=== PATIENT | female | born 1945 | race Caucasian/White ===

== ENCOUNTER → 2018-05-21 | Outpatient (CLI) | payer MEDICARE, OTHER ==
[~2018-05-21] MED LIST: ASPI-555 PO; BETA1TAB20 PO; CHOL5POW MC; LEVO175T4 PO; LEVO200T5 PO; LOSA100T20 PO; METO-408 PO; OMEP20CA10 PO; VITAMIN B12 INJ INJ; [UNRECOGNIZED DRUG - CODE] MC
== END | disposition home or self-care (01) ==
LOC: RAH 10:50
PROVIDERS: ATTEND Internal Medicine Endocrinology, Diabetes & Metabolism
DX: E04.2 Nontoxic multinodular goiter (principal); K21.9 Gastro-esophageal reflux disease without esophagitis
CPT/HCPCS: 76536

== ENCOUNTER 2019-04-08 11:22 | Inpatient (IN) | payer OTHER ==
[~2019-04-08] VITALS: Ht 160 cm; Wt 86.5 kg
[~2019-04-08 11:22] MED LIST changes: -LOSA100T20 PO; +LOSA100T58 PO; +OMEP-50 PO; -OMEP20CA10 PO
[2019-04-08 12:00] LABS: BASOPHILS % (AUTO) 0.2 % (0.0-5.0); HEMATOCRIT 48.3 % (36-48); LYMPHOCYTES % (AUTO) 4.7 % (21.0-51.0); MEAN CORPUSCULAR HEMOGLOBIN 29.6 pg (27.0-33.0); MEAN CORPUSCULAR HGB CONC 33.7 g/dL (32.0-36.0); MEAN CORPUSCULAR VOLUME 87.6 fL (79-99); MONOCYTES % (AUTO) 4.4 % (3.0-13.0); NEUTROPHILS % (AUTO) 90.7 % (40.0-77.0); PLATELET COUNT (AUTO) 261 K/uL (130-400); RED BLOOD CELL COUNT(AUTO) 5.51 MIL/uL (4.00-5.50); RED CELL DISTRIBUTION WIDTH 13.4 % (11.0-15.5); WHITE BLOOD COUNT (AUTO) 16.6 K/uL (4.8-10.8)
[2019-04-08] MEDS ORDERED: ONDANSETRON HCL 4 MG/2 ML VIAL ONE ×2 (12:00→20:21)
[2019-04-08] MEDS ORDERED: SODIUM CHLORIDE 0.9% 1000ML 1,000 ML IV ONE ×2 (12:01→16:50)
[2019-04-08] MEDS ORDERED: KETOROLAC TROMETHAMINE 30MG/ML ONE (12:01)
[2019-04-08 12:09] LABS: CREATININE 0.9 mg/dL (0.5-1.5); POTASSIUM 3.9 mmol/L (3.5-5.1)
[2019-04-08 12:23] LABS: ALBUMIN 4.4 g/dL (3.5-5.0); BILIRUBIN,DIRECT 0.2 mg/dL (0.0-0.3); TOTAL PROTEIN, SERUM 9.1 g/dL (6.0-8.3)
[2019-04-08 12:52] LABS: INR 1.1 (0.85-1.15); PARTIAL THROMBOPLASTIN TIME 34.3 SEC (26.3-35.5); PROTHROMBIN TIME 11.5 SEC (9.6-11.6)
[2019-04-08] MEDS: SODIUM CHLORIDE 0.9% 1000ML 1,000 ML IV SCH ×2 (16:16→23:37)
[2019-04-08] MEDS ORDERED: KETOROLAC TROMETHAMINE 15MG/ML IV PRN (16:30)
[2019-04-08] MEDS ORDERED: LACTULOSE 20 GM/30 ML UDCUP PO PRN (16:30)
[2019-04-08] MEDS ORDERED: ACETAMINOPHEN 325 MG TAB PO PRN (16:30)
[2019-04-08] MEDS ORDERED: METRONIDAZOLE 500MG/100ML BAG 100 ML ONE (16:49)
[2019-04-08] MEDS ORDERED: ENOXAPARIN SODIUM 40 MG/0.4 ML SYRINGE SQ ONE (16:49)
[2019-04-08] MEDS ORDERED: FAMOTIDINE/PF 20 MG/2 ML VIAL IV ONE (16:50)
[2019-04-08 16:51] LABS: APPEARANCE,URINE Cloudy (CLEAR); BILIRUBIN,URINE Small (NEGATIVE); COLOR,URINE Dark Yellow (YELLOW); GLUCOSE, URINE (UA) Negative (NEGATIVE); KETONES,URINE Negative (NEGATIVE); LEUKOCYTE ESTERASE ,URINE Trace (NEGATIVE); NITRATE,URINE Negative (NEGATIVE); OCCULT BLOOD,URINE Negative (NEGATIVE); PROTEIN,URINE 300 mg/dL (NEGATIVE)
[2019-04-08] MEDS: METRONIDAZOLE 500MG/100ML BAG 100 ML IV SCH (17:00)
[2019-04-08 17:03] LABS: BACTERIA,URINE Moderate /HPF (None Seen); MUCUS,URINE Many LPF (None Seen)
[2019-04-08] MEDS ORDERED: KETOROLAC TROMETHAMINE 15MG/ML ONE (17:18)
[2019-04-08 21:00] VITALS: BP 156/75
[2019-04-08] MEDS ORDERED: FAMOTIDINE/PF 20 MG/2 ML VIAL IV SCH (21:00)
[2019-04-08 23:10] VITALS: BP 140/77
[2019-04-08] MEDS ORDERED: CARV12.511 PO (23:43)
[2019-04-09] MEDS: METRONIDAZOLE 500MG/100ML BAG 100 ML IV SCH ×2 (01:10→10:03)
[2019-04-09 03:10] VITALS: BP 142/70
[2019-04-09 06:31] LABS: BASOPHILS % (AUTO) 0.1 % (0.0-5.0); LYMPHOCYTES % (AUTO) 15.4 % (21.0-51.0); MEAN CORPUSCULAR HEMOGLOBIN 29.9 pg (27.0-33.0); MEAN CORPUSCULAR HGB CONC 33.4 g/dL (32.0-36.0); MEAN CORPUSCULAR VOLUME 89.6 fL (79-99); MONOCYTES % (AUTO) 20.4 % (3.0-13.0); NEUTROPHILS % (AUTO) 64.1 % (40.0-77.0); PLATELET COUNT (AUTO) 191 K/uL (130-400); RED BLOOD CELL COUNT(AUTO) 4.46 MIL/uL (4.00-5.50); RED CELL DISTRIBUTION WIDTH 13.4 % (11.0-15.5); WHITE BLOOD COUNT (AUTO) 8.2 K/uL (4.8-10.8)
[2019-04-09 06:38] LABS: CREATININE 0.9 mg/dL (0.5-1.5); POTASSIUM 3.8 mmol/L (3.5-5.1)
[2019-04-09 08:16] VITALS: BP 158/75
[2019-04-09] MEDS: SODIUM CHLORIDE 0.9% 1000ML 1,000 ML IV SCH ×2 (08:26→16:35)
[2019-04-09] MEDS: FAMOTIDINE/PF 20 MG/2 ML VIAL IV SCH (10:03)
[2019-04-09] MEDS: ENOXAPARIN SODIUM 40 MG/0.4 ML SYRINGE SQ SCH (10:04)
[2019-04-09 12:06] VITALS: BP 153/72
--- NOTE | 2019-04-09 14:16 | NUR ---
DCP CM met with pt discussed dc plans. Pt is independent prior to admission, lives at home with spouse. Denies any other equipments/services. Pt feels safe to go back home, spouse able to assist with transportation and needs as necessary. DC plan to home once stable. CM to cont to follow up. Addendum: 04/09/19 at 1417 by GILL YANEZ LVN CM Amended: Links added.
[2019-04-09] MEDS ORDERED: POTASSIUM CHLORIDE 20 MEQ ERTAB PO PRN (16:00)
[2019-04-09] MEDS ORDERED: POTASSIUM CHLORIDE 10% ELIXIR 20 MEQ/15 ML UDCUP PO PRN (16:00)
[2019-04-09] MEDS ORDERED: POTASSIUM CHLORIDE 20MEQ/100ML 100 ML IV PRN ×2 (16:00)
[2019-04-09 16:36] VITALS: BP 148/87
[2019-04-09 19:00] VITALS: BP 144/60
[2019-04-09 23:00] VITALS: BP 143/62
[2019-04-09] MEDS: IPRATROPIUM 0.5 MG/2.5 ML INH IH SCH (23:06)
[2019-04-10 03:00] VITALS: BP 156/77
[2019-04-10] MEDS: SODIUM CHLORIDE 0.9% 1000ML 1,000 ML IV SCH ×2 (04:58→16:56)
[2019-04-10 05:32] LABS: BASOPHILS % (AUTO) 0.1 % (0.0-5.0); HEMATOCRIT 37.8 % (36-48); LYMPHOCYTES % (AUTO) 16.8 % (21.0-51.0); MEAN CORPUSCULAR HEMOGLOBIN 30.3 pg (27.0-33.0); MEAN CORPUSCULAR VOLUME 89.2 fL (79-99); MONOCYTES % (AUTO) 15.3 % (3.0-13.0); NEUTROPHILS % (AUTO) 67.8 % (40.0-77.0); PLATELET COUNT (AUTO) 162 K/uL (130-400); RED BLOOD CELL COUNT(AUTO) 4.24 MIL/uL (4.00-5.50); RED CELL DISTRIBUTION WIDTH 13.4 % (11.0-15.5); WHITE BLOOD COUNT (AUTO) 6.8 K/uL (4.8-10.8)
[2019-04-10 05:43] LABS: CREATININE 0.8 mg/dL (0.5-1.5); POTASSIUM 3.7 mmol/L (3.5-5.1)
[2019-04-10] MEDS: IPRATROPIUM 0.5 MG/2.5 ML INH IH SCH ×3 (06:24→19:27)
[2019-04-10 08:00] VITALS: BP 166/73
[2019-04-10] MEDS: FAMOTIDINE/PF 20 MG/2 ML VIAL IV SCH (08:20)
[2019-04-10] MEDS: ENOXAPARIN SODIUM 40 MG/0.4 ML SYRINGE SQ SCH (08:21)
[2019-04-10 11:50] VITALS: BP 166/86
[2019-04-10] MEDS ORDERED: DIATR MEGLU/DIATRIZOATE SODIUM 30 ML BOTTLE ONE (13:57)
[2019-04-10 16:00] VITALS: BP 174/77
[2019-04-10] MEDS: ONDANSETRON HCL 4 MG/2 ML VIAL IV PRN (18:13)
[2019-04-10 19:15] VITALS: BP 168/68
[2019-04-11] VITALS (23 sets, daily range): BP systolic 124–165; BP diastolic 46–76
[2019-04-11] MEDS: SODIUM CHLORIDE 0.9% 1000ML 1,000 ML IV SCH ×2 (03:36→18:28)
[2019-04-11 06:11] LABS: HEMATOCRIT 39.4 % (36-48); LYMPHOCYTES % (AUTO) 18.1 % (21.0-51.0); MEAN CORPUSCULAR HEMOGLOBIN 30.4 pg (27.0-33.0); MEAN CORPUSCULAR HGB CONC 33.7 g/dL (32.0-36.0); MONOCYTES % (AUTO) 12.5 % (3.0-13.0); NEUTROPHILS % (AUTO) 69.4 % (40.0-77.0); PLATELET COUNT (AUTO) 162 K/uL (130-400); RED BLOOD CELL COUNT(AUTO) 4.37 MIL/uL (4.00-5.50); RED CELL DISTRIBUTION WIDTH 13.1 % (11.0-15.5); WHITE BLOOD COUNT (AUTO) 6.6 K/uL (4.8-10.8)
[2019-04-11 06:21] LABS: CREATININE 0.7 mg/dL (0.5-1.5); POTASSIUM 3.6 mmol/L (3.5-5.1)
[2019-04-11] MEDS: IPRATROPIUM 0.5 MG/2.5 ML INH IH SCH ×4 (06:54→23:15)
[2019-04-11] MEDS: ENOXAPARIN SODIUM 40 MG/0.4 ML SYRINGE SQ SCH (08:53)
[2019-04-11] MEDS: FAMOTIDINE/PF 20 MG/2 ML VIAL IV SCH (08:56)
--- NOTE | 2019-04-11 11:00 | NUR ---
PT TAKEN TO OR AT THIS TIME PT LEFT ROOM WITH FRIEND AT BEDSIDE, NO DISTRESS NOTED. 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 PT PROVIDED WITH LABELED CUP TO PLACE THEM WHEN SHE GOES DOWNSTAIRS
[2019-04-11] MEDS ORDERED: DEXAMETHASONE SOD PHOSPHATE 10MG/ML 1ML VIAL ONE (11:45)
[2019-04-11] MEDS ORDERED: GLYCOPYRROLATE 1 MG/5 ML SYRINGE ONE (11:45)
[2019-04-11] MEDS ORDERED: SUCCINYLCHOLINE 200MG/10ML SYR ONE (11:45)
[2019-04-11] MEDS ORDERED: NEOSTIGMINE 5MG/5ML SYR IV ONE (11:45)
[2019-04-11] MEDS ORDERED: LIDOCAINE PF 2% 5ML ABBOJECT ONE (11:45)
[2019-04-11] MEDS ORDERED: ONDANSETRON HCL 4 MG/2 ML VIAL ONE (11:45)
[2019-04-11] MEDS ORDERED: PROPOFOL 10 MG/ML 20ML VIAL IV ONE (11:45)
[2019-04-11] MEDS ORDERED: MIDAZOLAM HCL 1 MG/ML 2ML VIAL ONE (11:46)
[2019-04-11] MEDS ORDERED: FENTANYL CITRATE PF 50 MCG/1 ML 2ML VIAL ONE ×2 (11:46→12:25)
[2019-04-11] MEDS ORDERED: ROCURONIUM 10MG/1ML SYR 10 MG/ML ML ONE (11:46)
[2019-04-11] MEDS: CEFAZOLIN SODIUM 1 GM VIAL ONE ×2 (11:52→12:20)
[2019-04-11] MEDS ORDERED: MEPERIDINE-PF 25 MG/ML SYG ONE (13:49)
[2019-04-11] MEDS ORDERED: EPHEDRINE SULFATE 50 MG/ML AMPULE ONE (14:48)
[2019-04-11] MEDS: D5W-1/2 NS/20MEQ KCL 1,000 ML IV SCH ×2 (15:06→23:06)
[2019-04-11] MEDS: ONDANSETRON HCL 4 MG/2 ML VIAL IV PRN (17:28)
[2019-04-12 00:12] VITALS: BP 137/60
[2019-04-12 04:12] VITALS: BP 143/65
[2019-04-12 05:10] LABS: BASOPHILS % (AUTO) 0.2 % (0.0-5.0); HEMATOCRIT 37.6 % (36-48); LYMPHOCYTES % (AUTO) 3.5 % (21.0-51.0); MEAN CORPUSCULAR HEMOGLOBIN 30.1 pg (27.0-33.0); MEAN CORPUSCULAR HGB CONC 33.7 g/dL (32.0-36.0); MEAN CORPUSCULAR VOLUME 89.4 fL (79-99); MONOCYTES % (AUTO) 9.8 % (3.0-13.0); NEUTROPHILS % (AUTO) 86.5 % (40.0-77.0); PLATELET COUNT (AUTO) 202 K/uL (130-400); RED BLOOD CELL COUNT(AUTO) 4.21 MIL/uL (4.00-5.50); RED CELL DISTRIBUTION WIDTH 13.2 % (11.0-15.5)
[2019-04-12 05:21] LABS: CREATININE 0.8 mg/dL (0.5-1.5); POTASSIUM 3.9 mmol/L (3.5-5.1)
[2019-04-12] MEDS: IPRATROPIUM 0.5 MG/2.5 ML INH IH SCH ×4 (06:48→23:09)
[2019-04-12] MEDS: SODIUM CHLORIDE 0.9% 1000ML 1,000 ML IV SCH (06:58)
[2019-04-12 08:18] VITALS: BP 155/68
[2019-04-12] MEDS: FAMOTIDINE/PF 20 MG/2 ML VIAL IV SCH (09:41)
[2019-04-12] MEDS: ENOXAPARIN SODIUM 40 MG/0.4 ML SYRINGE SQ SCH (09:42)
[2019-04-12] MEDS: D5W-1/2 NS/20MEQ KCL 1,000 ML IV SCH ×3 (11:50→19:43)
[2019-04-12 12:00] VITALS: BP 162/75
--- NOTE | 2019-04-12 15:29 | NUR ---
ANA WELDER FITTER ARC HERE TO REACCESS EPIDURAL FOR PAIN CONTROL. PATIENT AWAKE AND ALERT,
[2019-04-12] MEDS ORDERED: LIDOCAINE HCL MPF 1% 5ML VIAL ONE (15:34)
[2019-04-12 16:26] VITALS: BP 162/70
[2019-04-12] MEDS: ROPIVACAINE 0.2% 100ML VIAL 100 ML EP SCH (17:37)
[2019-04-12 20:00] VITALS: BP 156/71
[2019-04-13] VITALS (7 sets, daily range): BP systolic 155–181; BP diastolic 73–85
[2019-04-13] MEDS: ROPIVACAINE 0.2% 100ML VIAL 100 ML EP SCH ×3 (02:35→21:07)
[2019-04-13] MEDS: D5W-1/2 NS/20MEQ KCL 1,000 ML IV SCH ×2 (03:31→18:57)
[2019-04-13 06:07] LABS: BASOPHILS % (AUTO) 0.2 % (0.0-5.0); HEMATOCRIT 33.7 % (36-48); LYMPHOCYTES % (AUTO) 9.4 % (21.0-51.0); MEAN CORPUSCULAR HEMOGLOBIN 30.5 pg (27.0-33.0); MEAN CORPUSCULAR VOLUME 89.7 fL (79-99); MONOCYTES % (AUTO) 12.7 % (3.0-13.0); NEUTROPHILS % (AUTO) 77.7 % (40.0-77.0); PLATELET COUNT (AUTO) 157 K/uL (130-400); RED BLOOD CELL COUNT(AUTO) 3.75 MIL/uL (4.00-5.50); RED CELL DISTRIBUTION WIDTH 13.5 % (11.0-15.5); WHITE BLOOD COUNT (AUTO) 9.2 K/uL (4.8-10.8)
[2019-04-13 06:24] LABS: CREATININE 0.7 mg/dL (0.5-1.5); POTASSIUM 3.7 mmol/L (3.5-5.1)
[2019-04-13] MEDS: IPRATROPIUM 0.5 MG/2.5 ML INH IH SCH ×4 (06:28→23:09)
[2019-04-13] MEDS: FAMOTIDINE/PF 20 MG/2 ML VIAL IV SCH (10:35)
[2019-04-13] MEDS ORDERED: HYDRALAZINE HCL 20 MG/ML VIAL IM PRN (11:45)
[2019-04-13] MEDS: HYDRALAZINE HCL 20 MG/ML VIAL IV PRN (15:04)
[2019-04-13] MEDS ORDERED: SODIUM CHLORIDE 45 ML SPRY NS PRN (19:00)
[2019-04-13] MEDS: ONDANSETRON HCL 4 MG/2 ML VIAL IV PRN (22:47)
--- NOTE | 2019-04-14 01:16 | NUR ---
incision vertical incision due to laparotomy procedure. dry and intact. has 29 kannan Addendum: 04/14/19 at 0117 by SHANNON RUDD RN Amended: Links added.
[2019-04-14 03:15] VITALS: BP 179/94
[2019-04-14 06:07] LABS: BASOPHILS % (AUTO) 0.3 % (0.0-5.0); HEMATOCRIT 34.6 % (36-48); LYMPHOCYTES % (AUTO) 11.9 % (21.0-51.0); MEAN CORPUSCULAR HEMOGLOBIN 30.7 pg (27.0-33.0); MEAN CORPUSCULAR HGB CONC 34.6 g/dL (32.0-36.0); MEAN CORPUSCULAR VOLUME 88.6 fL (79-99); MONOCYTES % (AUTO) 12.5 % (3.0-13.0); NEUTROPHILS % (AUTO) 75.3 % (40.0-77.0); PLATELET COUNT (AUTO) 196 K/uL (130-400); RED BLOOD CELL COUNT(AUTO) 3.91 MIL/uL (4.00-5.50); RED CELL DISTRIBUTION WIDTH 13.1 % (11.0-15.5); WHITE BLOOD COUNT (AUTO) 8.7 K/uL (4.8-10.8)
[2019-04-14 06:15] LABS: CREATININE 0.7 mg/dL (0.5-1.5); POTASSIUM 3.6 mmol/L (3.5-5.1)
[2019-04-14] MEDS: IPRATROPIUM 0.5 MG/2.5 ML INH IH SCH ×4 (06:29→23:26)
[2019-04-14 07:30] VITALS: BP 152/78
[2019-04-14] MEDS: FAMOTIDINE/PF 20 MG/2 ML VIAL IV SCH (09:44)
[2019-04-14] MEDS: D5W-1/2 NS/20MEQ KCL 1,000 ML IV SCH ×2 (09:45→18:51)
[2019-04-14 11:00] VITALS: BP 138/73
[2019-04-14] MEDS: ROPIVACAINE 0.2% 100ML VIAL 100 ML EP SCH ×2 (11:20→20:59)
[2019-04-14 16:00] VITALS: BP 162/85
--- NOTE | 2019-04-14 18:23 | NUR ---
NOTICED A SMALL LEAK LIGHT BROWN IN COLOR ON FITTED SHEET FROM EPIDURAL AREA. NOTIFIED ANA CUTTER GAS TO COME AND OBSERVE EPIDURAL DEVICE ATTACHED TO BACK. ANA CUTTER GAS HERE AND REINFORCED EPIDURAL DEVICE TO BACK.
[2019-04-14] MEDS: HYDRALAZINE HCL 20 MG/ML VIAL IV PRN (18:49)
--- NOTE | 2019-04-14 18:49 | NUR ---
BLOOD PRESSURE AT 162/85-85 GAVE HYDRALAZINE 10 MG IV . WILL INFORM ONCOMING TO MONITOR.
[2019-04-14 19:25] VITALS: BP 140/73
[2019-04-14] MEDS: CARVEDILOL 12.5 MG TABLET PO SCH (20:46)
[2019-04-14 23:00] VITALS: BP 117/57
[2019-04-15 03:00] VITALS: BP 103/71
[2019-04-15] MEDS: D5W-1/2 NS/20MEQ KCL 1,000 ML IV SCH ×2 (05:31→15:29)
[2019-04-15 05:41] LABS: BASOPHILS % (AUTO) 0.1 % (0.0-5.0); HEMATOCRIT 35.4 % (36-48); LYMPHOCYTES % (AUTO) 15.5 % (21.0-51.0); MEAN CORPUSCULAR HEMOGLOBIN 30.5 pg (27.0-33.0); MEAN CORPUSCULAR HGB CONC 34.2 g/dL (32.0-36.0); MEAN CORPUSCULAR VOLUME 89.1 fL (79-99); NEUTROPHILS % (AUTO) 67.4 % (40.0-77.0); PLATELET COUNT (AUTO) 200 K/uL (130-400); RED BLOOD CELL COUNT(AUTO) 3.97 MIL/uL (4.00-5.50); RED CELL DISTRIBUTION WIDTH 13.3 % (11.0-15.5); WHITE BLOOD COUNT (AUTO) 7.5 K/uL (4.8-10.8)
[2019-04-15 05:52] LABS: CREATININE 0.7 mg/dL (0.5-1.5); POTASSIUM 3.8 mmol/L (3.5-5.1)
[2019-04-15] MEDS: IPRATROPIUM 0.5 MG/2.5 ML INH IH SCH ×4 (06:30→23:03)
[2019-04-15 07:30] VITALS: BP 117/61
[2019-04-15] MEDS: LOSARTAN 100 MG TABLET PO SCH (08:55)
[2019-04-15] MEDS: CARVEDILOL 12.5 MG TABLET PO SCH ×2 (08:55→20:37)
[2019-04-15] MEDS: FAMOTIDINE/PF 20 MG/2 ML VIAL IV SCH (08:55)
[2019-04-15] MEDS: **HM** PRESERVISION AREDS PO SCH (09:00)
[2019-04-15] MEDS: LEVOTHYROXINE 75 MCG TABLET PO SCH (10:39)
[2019-04-15] MEDS: LEVOTHYROXINE 100 MCG TABLET PO SCH (10:39)
[2019-04-15 11:00] VITALS: BP 144/75
--- NOTE | 2019-04-15 15:01 | NUR ---
CM Note: declined placement CM met with pt and spouse, discussed possible short term placement for rehab. At this time pt declined, stated she would like to go back home, her is alone at home. Feels safe to go back home, states she has family and friends that will be able to assist if necessary. DC plan to home. Primary nurse aware. CM to cont to follow up.
[2019-04-15] MEDS: CHOLESTYRAMINE PACKET 4 GM PACKET PO SCH (15:29)
[2019-04-15 16:00] VITALS: BP 140/79
--- NOTE | 2019-04-15 17:30 | NUR ---
Nutrition Intervention: Nutrition screen based on LOS x 7 days. Pt. S/P Abd. exploration release of bowel obst./partial omentectomy(04/11/19). Pt. on Clear Liquids(Only send 2 popsicles) diet with good p.o.intake; no c/o N/V. Pt. reports is hungry and ready for solid food. Labs reviewed(Alb 4.4). LBM: 04/15/19, per pt. SR-21, abd. incision. BMI: 33.8, Obesity grade 1. Recommendations: 1) Rec. advance diet as tolerated to Heart Healthy GI Soft [place]. 2) Continue to monitor pt's nutritional status. 3) Consult RD as nutrition concerns arise. Addendum: 04/15/19 at [address] Amended: Links added.
[2019-04-15 19:30] VITALS: BP 160/80
[2019-04-16 03:35] VITALS: BP 143/73
[2019-04-16 06:08] LABS: BASOPHILS % (AUTO) 0.3 % (0.0-5.0); HEMATOCRIT 39.2 % (36-48); LYMPHOCYTES % (AUTO) 13.1 % (21.0-51.0); MEAN CORPUSCULAR HEMOGLOBIN 30.4 pg (27.0-33.0); MEAN CORPUSCULAR HGB CONC 34.2 g/dL (32.0-36.0); MONOCYTES % (AUTO) 15.6 % (3.0-13.0); PLATELET COUNT (AUTO) 315 K/uL (130-400); RED CELL DISTRIBUTION WIDTH 13.4 % (11.0-15.5); WHITE BLOOD COUNT (AUTO) 9.8 K/uL (4.8-10.8)
[2019-04-16 06:25] LABS: CREATININE 0.8 mg/dL (0.5-1.5); POTASSIUM 3.7 mmol/L (3.5-5.1)
[2019-04-16] MEDS: IPRATROPIUM 0.5 MG/2.5 ML INH IH SCH ×4 (06:54→23:18)
[2019-04-16 07:30] VITALS: BP 150/89
[2019-04-16] MEDS: D5W-1/2 NS/20MEQ KCL 1,000 ML IV SCH (07:46)
--- NOTE | 2019-04-16 08:00 | NUR ---
AM ASSESSMENT. SITTING IN CHAIR NOW, STATES SHE IS COMFORTABLE.
[2019-04-16] MEDS: FAMOTIDINE/PF 20 MG/2 ML VIAL IV SCH (08:03)
[2019-04-16] MEDS: FLUTICASONE PROPIONATE 50MCG/SPRAY 16 GM BOTTLE EN SCH (08:55)
[2019-04-16] MEDS: LEVOTHYROXINE 100 MCG TABLET PO SCH (08:59)
[2019-04-16] MEDS: LEVOTHYROXINE 75 MCG TABLET PO SCH (08:59)
[2019-04-16] MEDS: CHOLESTYRAMINE PACKET 4 GM PACKET PO SCH (09:00)
[2019-04-16] MEDS: CARVEDILOL 12.5 MG TABLET PO SCH ×2 (09:00→20:40)
[2019-04-16] MEDS: LOSARTAN 100 MG TABLET PO SCH (09:00)
[2019-04-16] MEDS ORDERED: ACETAMINOPHEN EXTRA STRENGTH 500 MG TABLET PO PRN (09:30)
[2019-04-16 11:00] VITALS: BP 126/74
--- NOTE | 2019-04-16 12:00 | NUR ---
IV CONVERTED TO SALINE LOCK. HAS TOLERATED REG. DIET WELL.
--- NOTE | 2019-04-16 15:42 | NUR ---
RD FOLLOW UP Pt diet advanced to regular diet. Pt reports drinks tea throughout the day, okay to receive Large tea once daily. Pt food preferences updated (No: MIlk, cheese, juice, banana, applesauce; Likes: mashed potatoes, chkn noodle soup). LBM 04/15/19. Pt monitored labs: Na 135, Cl 100, BUN 4, Glu 116, Alb 4.4. RD to continue to monitor. Please notify RD as additional nutrition concerns arise. Thank you. Addendum: 04/16/19 at [address] Amended: Links added.
[2019-04-16 16:00] VITALS: BP 142/80
--- NOTE | 2019-04-16 16:00 | NUR ---
UP AMBULATORY IN ROOM SURG INCISION OPEN TO AIR, CLEAN AND CLOSED WITH BEBETO IN PLACE.
[2019-04-16 20:00] VITALS: BP 154/74
[2019-04-17] VITALS: BP 108/52
--- NOTE | 2019-04-17 02:15 | NUR ---
RASH Pt states she has rashes on her back,below her breast in between the folds.She wanted lotion applied for now and will obtain treatment in am.
[2019-04-17 04:00] VITALS: BP 159/76
[2019-04-17 05:20] LABS: BASOPHILS % (AUTO) 0.2 % (0.0-5.0); HEMATOCRIT 34.8 % (36-48); MEAN CORPUSCULAR HEMOGLOBIN 30.5 pg (27.0-33.0); MEAN CORPUSCULAR HGB CONC 34.9 g/dL (32.0-36.0); MEAN CORPUSCULAR VOLUME 87.4 fL (79-99); MONOCYTES % (AUTO) 15.4 % (3.0-13.0); NEUTROPHILS % (AUTO) 68.4 % (40.0-77.0); PLATELET COUNT (AUTO) 264 K/uL (130-400); RED BLOOD CELL COUNT(AUTO) 3.98 MIL/uL (4.00-5.50); WHITE BLOOD COUNT (AUTO) 8.4 K/uL (4.8-10.8)
[2019-04-17 05:37] LABS: CREATININE 0.8 mg/dL (0.5-1.5); POTASSIUM 3.7 mmol/L (3.5-5.1)
[2019-04-17] MEDS: LEVOTHYROXINE 100 MCG TABLET PO SCH (06:23)
[2019-04-17] MEDS: LEVOTHYROXINE 75 MCG TABLET PO SCH (06:23)
[2019-04-17] MEDS: FAMOTIDINE/PF 20 MG/2 ML VIAL IV SCH ×2 (06:34→08:11)
[2019-04-17] MEDS: ENOXAPARIN SODIUM 40 MG/0.4 ML SYRINGE SQ SCH ×2 (06:41→09:00)
[2019-04-17] MEDS: **HM** PRESERVISION AREDS PO SCH ×2 (06:41→09:00)
[2019-04-17] MEDS: IPRATROPIUM 0.5 MG/2.5 ML INH IH SCH ×2 (06:49→11:30)
[2019-04-17 08:26] VITALS: BP 121/68
[2019-04-17] MEDS ORDERED: FAMOTIDINE 20MG TAB 20 MG TAB ONE (08:54)
[2019-04-17] MEDS: CARVEDILOL 12.5 MG TABLET PO SCH (08:59)
[2019-04-17] MEDS: LOSARTAN 100 MG TABLET PO SCH (08:59)
[2019-04-17] MEDS: CHOLESTYRAMINE PACKET 4 GM PACKET PO SCH (08:59)
[2019-04-17] MEDS: FLUTICASONE PROPIONATE 50MCG/SPRAY 16 GM BOTTLE EN SCH (09:00)
[2019-04-17 11:48] VITALS: BP 130/70
[2019-04-19] MEDS ORDERED: LEVOTHYROXINE 100 MCG TABLET PO SCH (09:00)
== END 2019-04-17 16:30 | disposition home or self-care (01) | DRG 336 ==
LOC: EDH 11:22 → EDHIP 16:16 → 3CH 20:47
PROVIDERS: ADMIT Family Medicine; ATTEND Family Medicine
PROC: 0D9670Z Drainage of Stomach with Drainage Device, Via Natural or Artificial Opening (ICD-10-PCS; principal; 2019-04-09)
PROC: 0DN80ZZ Release Small Intestine, Open Approach (ICD-10-PCS; 2019-04-11 11:47)
PROC: 0DBU0ZZ Excision of Omentum, Open Approach (ICD-10-PCS; 2019-04-11 11:47)
PROC: 0WQF0ZZ Repair Abdominal Wall, Open Approach (ICD-10-PCS; 2019-04-11 11:47)
DX: K56.50 Intestinal adhesions [bands], unspecified as to partial versus complete obstruction (principal); K43.0 Incisional hernia with obstruction, without gangrene; K43.6 Other and unspecified ventral hernia with obstruction, without gangrene; K80.20 Calculus of gallbladder without cholecystitis without obstruction; E86.0 Dehydration; E03.9 Hypothyroidism, unspecified; E78.5 Hyperlipidemia, unspecified; E83.52 Hypercalcemia; I10 Essential (primary) hypertension; K52.9 Noninfective gastroenteritis and colitis, unspecified; Z88.5 Allergy status to narcotic agent; Z88.0 Allergy status to penicillin; Z88.8 Allergy status to other drugs, medicaments and biological substances; Z83.3 Family history of diabetes mellitus; Z82.5 Family history of asthma and other chronic lower respiratory diseases; Z82.49 Family history of ischemic heart disease and other diseases of the circulatory system; Z80.0 Family history of malignant neoplasm of digestive organs; Z80.3 Family history of malignant neoplasm of breast; D72.828 Other elevated white blood cell count
CPT/HCPCS: 36415; 74021; 74176; 80048; 80076; 81001; 82550; 82948; 83690; 84484; 85025; 85610; 85730; 88302; 88305; 93005; 94640; 94664; 97039; A4344; G0378; J0330; J0360; J0690; J1100; J1650; J1885; J2001; J2175; J2250; J2405; J2704; J2710; J2795; J3010; J3480; J3490; J7030; Q9963

== ENCOUNTER 2019-04-21 15:08 | Inpatient (IN) | payer OTHER ==
[~2019-04-21] VITALS: Ht 160 cm; Wt 83.5 kg
[~2019-04-21 15:08] MED LIST changes: -ASPI-555 PO; +CARV12.511 PO; -METO-408 PO; -[UNRECOGNIZED DRUG - CODE] MC
[2019-04-21] MEDS ORDERED: ONDANSETRON HCL 4 MG/2 ML VIAL ONE (15:45)
[2019-04-21 15:52] LABS: APPEARANCE,URINE Cloudy (CLEAR); BASOPHILS % (AUTO) 1.1 % (0.0-5.0); BILIRUBIN,URINE Negative (NEGATIVE); COLOR,URINE Yellow (YELLOW); GLUCOSE, URINE (UA) Negative (NEGATIVE); HEMATOCRIT 38.8 % (36-48); KETONES,URINE Negative (NEGATIVE); LEUKOCYTE ESTERASE ,URINE Large (NEGATIVE); LYMPHOCYTES % (AUTO) 13.6 % (21.0-51.0); MEAN CORPUSCULAR HEMOGLOBIN 30.2 pg (27.0-33.0); MEAN CORPUSCULAR HGB CONC 34.4 g/dL (32.0-36.0); MEAN CORPUSCULAR VOLUME 87.9 fL (79-99); MONOCYTES % (AUTO) 6.8 % (3.0-13.0); NEUTROPHILS % (AUTO) 78.5 % (40.0-77.0); NITRATE,URINE Positive (NEGATIVE); OCCULT BLOOD,URINE Negative (NEGATIVE); PH,URINE 5.5 (5.0-8.0); PLATELET COUNT (AUTO) 386 K/uL (130-400); PROTEIN,URINE Negative (NEGATIVE); RED BLOOD CELL COUNT(AUTO) 4.42 MIL/uL (4.00-5.50); RED CELL DISTRIBUTION WIDTH 13.3 % (11.0-15.5); UROBILINOGEN,URINE 0.2 mg/dL (0.2-1.0); WHITE BLOOD COUNT (AUTO) 11.8 K/uL (4.8-10.8)
[2019-04-21 16:06] LABS: INR 1.17 (0.85-1.15); PARTIAL THROMBOPLASTIN TIME 42.7 SEC (26.3-35.5); PROTHROMBIN TIME 12.2 SEC (9.6-11.6)
[2019-04-21 16:07] LABS: CREATININE 0.8 mg/dL (0.5-1.5); POTASSIUM 3.7 mmol/L (3.5-5.1)
[2019-04-21 16:16] LABS: ALBUMIN 3.8 g/dL (3.5-5.0); BACTERIA,URINE Moderate /HPF (None Seen); RBC,URINE 0-1 /HPF (0-1)
[2019-04-21 16:17] LABS: SQUAMOUS EPITHELIAL CELL,UR Few /HPF (0-2)
[2019-04-21 16:28] LABS: BILIRUBIN,TOTAL 0.6 mg/dL (0.2-1.0); TOTAL PROTEIN, SERUM 7.9 g/dL (6.0-8.3)
[2019-04-21] MEDS ORDERED: MEROPENEM 1 GM VIAL ONE (16:34)
[2019-04-21] MEDS: MEROPENEM 500 MG VIAL IV SCH (17:45)
[2019-04-21] MEDS ORDERED: VANCOMYCIN PROTOCOL PER PHARMACY IV PRN (17:45)
[2019-04-21] MEDS ORDERED: MORPHINE SULFATE 2 MG/ML 1ML SYG IV PRN (17:45)
[2019-04-21] MEDS ORDERED: ACETAMINOPHEN 325 MG TAB PO PRN ×2 (17:45)
[2019-04-21] MEDS ORDERED: VANCOMYCIN IV SCH (19:00)
[2019-04-21] MEDS ORDERED: [UNRECOGNIZED DRUG - OTHER] IV SCH (19:00)
--- NOTE | 2019-04-21 20:15 | NUR ---
ADMIT PT ADMITTED TO ROOM 418, AAOX3. DENIES ANY PAINS AT THIS TIME. ADMISSION CARE DONE. PENDING PEPCID IV ADMINISTERED. CONTINUED IV VANCO FROM ER VIA PIV. ADMISSION DATA BASE COMPLETED. PLACED ON NPO STATUS. ORIENTED TO ROOM AND UNIT. IN FOR MORE CARE AND MANAGEMENT. CALL LIGHT WITHIN REACH. Addendum: 04/21/19 at 2303 by UMAIR SULTANA RN RN Amended: Links added. Addendum: 04/22/19 at 0145 by UMAIR SULTANA RN RN ERROR ENTRY
[2019-04-21] MEDS ORDERED: VANCOMYCIN 1GM+NS 250ML 250 ML IV SCH (21:00)
[2019-04-21 22:00] VITALS: BP 149/64
[2019-04-21] MEDS: FAMOTIDINE/PF 20 MG/2 ML VIAL IV SCH (22:11)
--- NOTE | 2019-04-21 22:15 | NUR ---
ADMIT ADMITTED PT TO ROOM 418, AAOX3. DENIES OF ANY ABDOMINAL PAINS AT THIS TIME. ADMISSION CARE DONE. PLACED NGT TO LIW. KEPT NPO EXCEPT FOR ICE CHIPS. IV PEPCID STARTED. IV VANCO FROM ER CONTINUED. ADMISSION DATA BASE COMPLETED. ORIENTED TO ROOM AND UNIT. IN FOR MORE CARE AND MANAGEMENT.
[2019-04-21] MEDS ORDERED: ASPI-555 PO (23:12)
[2019-04-21] MEDS ORDERED: CYAN1000I IM (23:12)
--- NOTE | 2019-04-21 23:27 | NUR ---
GROUND DEFENCE OFFICER PAGED GROUND DEFENCE OFFICER VIA ANSWERING SERVICE. REFERRED PT'S CONDITION BEING NPO BUT WITHOUT ANY IVF ORDERED. NEW IVF ORDER RECEIVED, PLEASE REFER TO CPOE. WILL HUNG IVF.
[2019-04-21 23:28] VITALS: BP 140/59
[2019-04-22] MEDS: SODIUM CHLORIDE 0.9% 1000ML 1,000 ML IV SCH ×4 (00:32→23:14)
[2019-04-22] MEDS: MEROPENEM 500 MG VIAL IV SCH ×3 (01:21→18:30)
--- NOTE | 2019-04-22 01:21 | NUR ---
MEDS PT RESTING WELL, FAIRLY ASLEEP. NO DISTRESS NOTED. KEPT UNDISTURBED FOR NOW. DUE IV MEDS ADMINISTERED. KEPT NPO EXCEPT FOR ICE CHIPS. WILL MONITOR PT.
[2019-04-22 03:45] VITALS: BP 152/63
--- NOTE | 2019-04-22 05:15 | NUR ---
ROUNDS PT DISCONNECTED FROM LINES TO GO TO THE RESTROOM. PT DENIES ANY PAINS AT THIS TIME. PT TOLERATED AMBULATION WELL WITHOUT ANY ASSIST. PLACED BACK ON IVF AND CONNECTED BACK TO NGT ON LIS. KEPT NPO EXCEPT ICE CHIPS. RE-CHECKED BOWELS SOUNDS, HYPOACTIVE STILL AT THIS TIME. NO PASSAGE OF GAS VERBALIZED BY PT. KEPT RESTED AND COMFORTABLE IN BED WITH HOB ELEVATED. FOR MORE CARE.
[2019-04-22 07:47] VITALS: BP 125/56
[2019-04-22] MEDS: FAMOTIDINE/PF 20 MG/2 ML VIAL IV SCH ×2 (08:40→20:04)
[2019-04-22] MEDS: VANCOMYCIN 1GM+NS 250ML 250 ML IV SCH ×2 (08:40→20:04)
[2019-04-22 11:04] VITALS: BP 128/75
[2019-04-22 11:14] LABS: BASOPHILS % (AUTO) 0.4 % (0.0-5.0); HEMATOCRIT 35.6 % (36-48); LYMPHOCYTES % (AUTO) 17.8 % (21.0-51.0); MEAN CORPUSCULAR HEMOGLOBIN 30.3 pg (27.0-33.0); MEAN CORPUSCULAR HGB CONC 34.3 g/dL (32.0-36.0); MEAN CORPUSCULAR VOLUME 88.4 fL (79-99); NEUTROPHILS % (AUTO) 72.8 % (40.0-77.0); NUCLEATED RED BLOOD CELLS 0.1 % (0.0-0.19); PLATELET COUNT (AUTO) 325 K/uL (130-400); RED BLOOD CELL COUNT(AUTO) 4.02 MIL/uL (4.00-5.50); RED CELL DISTRIBUTION WIDTH 13.2 % (11.0-15.5); WHITE BLOOD COUNT (AUTO) 10.5 K/uL (4.8-10.8)
[2019-04-22 11:17] LABS: CREATININE 0.9 mg/dL (0.5-1.5); POTASSIUM 3.6 mmol/L (3.5-5.1)
--- NOTE | 2019-04-22 11:49 | NUR ---
DCP CM met with pt discussed dc plans. Pt is independent prior to DC. Lives at home w/spouse. Denies any equipments/services. Feels safe to go back home, states arranges own needs, still drives. Offered possible short term placement, pt states she'll think about it as she takes care of her spouse, will decide once closer to dc. DC plan to home vs SNF. CM to cont to follow up. Addendum: 04/22/19 at 1151 by GILL YANEZ LVN CM Amended: Links added.
[2019-04-22 16:24] VITALS: BP 126/76
[2019-04-22 19:37] VITALS: BP 141/71
--- NOTE | 2019-04-22 20:04 | NUR ---
MEDS SHIFT ASSESSMNET DONE, PLEASE REFR TO CHART. DUE MEDS ADMINISTERED, TOLERATED WELL. CALL LIGHT WITHIN REACH. WILL MONITOR PT. Addendum: 04/22/19 at 2108 by UMAIR SULTANA RN RN Amended: Links added.
--- NOTE | 2019-04-22 22:00 | NUR ---
ROUNDS PT RESTING WELL, FAIRLY ASLEEP WITH RESPIRATIONS EVEN AND UNLABORED. NO NOTED DISTRESS. KEPT UNDISTURBED FOR NOW. WILL MONITOR PT.
[2019-04-22 23:29] VITALS: BP 161/59
[2019-04-23] VITALS (7 sets, daily range): BP systolic 126–168; BP diastolic 53–72
[2019-04-23] MEDS: MEROPENEM 500 MG VIAL IV SCH ×3 (01:43→17:37)
--- NOTE | 2019-04-23 01:50 | NUR ---
ROUNDS PT RESTING WELL, FAIRLY ASLEEP WITH RESPIRATIONS EVEN AND UNLABORED. NO DISTRESS NOTED. KEPT UNDISTURBED FOR NOW. DUE IV ABX ADMINISTERED. WILL MONITOR PT.
[2019-04-23] MEDS: SODIUM CHLORIDE 0.9% 1000ML 1,000 ML IV SCH ×3 (05:28→17:38)
[2019-04-23 05:35] LABS: BASOPHILS % (AUTO) 0.3 % (0.0-5.0); HEMATOCRIT 33.8 % (36-48); LYMPHOCYTES % (AUTO) 16.2 % (21.0-51.0); MEAN CORPUSCULAR HEMOGLOBIN 29.9 pg (27.0-33.0); MEAN CORPUSCULAR VOLUME 87.9 fL (79-99); MONOCYTES % (AUTO) 9.9 % (3.0-13.0); NEUTROPHILS % (AUTO) 73.6 % (40.0-77.0); NUCLEATED RED BLOOD CELLS 0.1 % (0.0-0.19); PLATELET COUNT (AUTO) 287 K/uL (130-400); RED BLOOD CELL COUNT(AUTO) 3.85 MIL/uL (4.00-5.50); RED CELL DISTRIBUTION WIDTH 13.2 % (11.0-15.5); WHITE BLOOD COUNT (AUTO) 7.8 K/uL (4.8-10.8)
[2019-04-23 05:55] LABS: CREATININE 0.7 mg/dL (0.5-1.5); POTASSIUM 3.6 mmol/L (3.5-5.1)
--- NOTE | 2019-04-23 05:57 | NUR ---
ASSIST PT ASSISTED WITH BEDPAN. NO CONCERNS VERBALIZED AT THIS TIME. KEPT COMFORTABLE IN BED. NEW IVF BAG HUNG. KEPT NPO. FOR MORE CARE.
[2019-04-23] MEDS ORDERED: COMPOUND IV REFRIGERATED 1 EACH IVSOLN MISC PRN (09:00)
[2019-04-23] MEDS: FAMOTIDINE/PF 20 MG/2 ML VIAL IV SCH ×2 (09:06→20:25)
[2019-04-23] MEDS: VANCOMYCIN 1GM+NS 250ML 250 ML IV SCH ×2 (09:06→20:24)
[2019-04-23] MEDS ORDERED: VANCOMYCIN 750MG + NS 250 ML IV SCH ×2 (14:00)
--- NOTE | 2019-04-23 19:45 | NUR ---
BUS BOY PAGED, CHANEL, BUS BOY LAUNDROMAT MANAGER FOR HOSPITALIST, VIA ANSWERING SERVICE, AND INFORMED ABOUT PT'S ELEVATED BP AND NPO STATUS. NEW MED ORDER RECEIVED, WILL MEDICATE PT.
[2019-04-23] MEDS: HYDRALAZINE HCL 20 MG/ML VIAL IV PRN (20:25)
--- NOTE | 2019-04-23 20:25 | NUR ---
MEDS SHIFT ASSESSMENT DONE, PLEASE REFER TO CHART. DUE MEDS ADMINISTERED, HYDRALAZINE IV GIVEN FOR ELEVATED BP. WILL RE-ASSESS PT.
--- NOTE | 2019-04-23 22:30 | NUR ---
RE-CHECK PT RESTING WELL, NO COMPLAINTS VERBALIZED. RE-CHECK PP=162/71, HR=70. ENCOURAGED TO GO BACK TO SLEEP. WILL CONTINUE TO MONITOR.
[2019-04-24] MEDS: MEROPENEM 500 MG VIAL IV SCH ×3 (01:13→17:58)
--- NOTE | 2019-04-24 02:00 | NUR ---
ROUNDS PT RESTING WELL, AWAKENED WHEN LABORER DEMOLITION ENTERS ROOM. NO DISTRESS NOTED. NO CONCERNS VERBALIZED. DUE IV MEDS ADMINISTERED. KEPT RESTED AND COMFORTABLE IN BED. WILL MONITOR PT. CALL LIGHT WITHIN REACH.
[2019-04-24 03:25] VITALS: BP 151/59
[2019-04-24] MEDS: SODIUM CHLORIDE 0.9% 1000ML 1,000 ML IV SCH ×4 (03:45→23:14)
--- NOTE | 2019-04-24 05:00 | NUR ---
SHOWER PT HAD SHOWERED AND TOLERATED ACTIVITY WELL. REQUESTED TO SIT IN CHAIR FOR NOW TO WATCH THE TV. CALL LIGTH WITHIN REACH. PLACED BACK ON IVF. KEPT NPO. FOR MORE CARE.
--- NOTE | 2019-04-24 05:39 | NUR ---
WALK PT WALKING AROUND THE FLOOR AT THIS TIME, TOLERATING ACTIVITY WELL.
[2019-04-24 05:54] LABS: BASOPHILS % (AUTO) 0.3 % (0.0-5.0); HEMATOCRIT 36.9 % (36-48); LYMPHOCYTES % (AUTO) 13.7 % (21.0-51.0); MEAN CORPUSCULAR HEMOGLOBIN 30.5 pg (27.0-33.0); MEAN CORPUSCULAR HGB CONC 34.6 g/dL (32.0-36.0); MEAN CORPUSCULAR VOLUME 88.3 fL (79-99); MONOCYTES % (AUTO) 8.6 % (3.0-13.0); NEUTROPHILS % (AUTO) 77.4 % (40.0-77.0); PLATELET COUNT (AUTO) 315 K/uL (130-400); RED BLOOD CELL COUNT(AUTO) 4.19 MIL/uL (4.00-5.50); RED CELL DISTRIBUTION WIDTH 13.1 % (11.0-15.5); WHITE BLOOD COUNT (AUTO) 8.1 K/uL (4.8-10.8)
[2019-04-24 06:02] LABS: CREATININE 0.7 mg/dL (0.5-1.5); POTASSIUM 3.4 mmol/L (3.5-5.1)
--- NOTE | 2019-04-24 06:50 | NUR ---
BACK PT BACK IN ROOM FROM RADIOLOGY. PLACED BACK ON IVF. RE-ASSESSED BOWEL SOUNDS, POSITIVE BUT HYPOACTIVE. NO PASSAGE OF GAS NOR BM YET AT THIS TIME.
[2019-04-24 08:00] VITALS: BP 130/49
[2019-04-24] MEDS: FAMOTIDINE/PF 20 MG/2 ML VIAL IV SCH ×2 (09:12→21:21)
[2019-04-24] MEDS: VANCOMYCIN 1GM+NS 250ML 250 ML IV SCH (09:16)
[2019-04-24 11:24] VITALS: BP 163/76
[2019-04-24] MEDS: HYDRALAZINE HCL 20 MG/ML VIAL IV PRN ×2 (12:02→23:56)
--- NOTE | 2019-04-24 12:13 | NUR ---
NGT REMOVAL 14FR INTACT NGTUBE REMOVED PER MD ORDER WITH MINIMAL DISCOMFORT FROM PT. NO RESISTANCE MET. PT TOLERATED WELL. WILL CNT TO MONITOR
[2019-04-24 16:00] VITALS: BP 149/67
[2019-04-24 20:39] VITALS: BP 160/80
--- NOTE | 2019-04-24 20:45 | NUR ---
APOLINAR JIANG TROUGH RESULTS IN, FXED TO RX AND CALLED PHARMACIST TO DOSE PT.
[2019-04-24] MEDS ORDERED: COMPOUND IV REFRIGERATED 1 EACH IVSOLN MISC PRN (21:00)
[2019-04-24] MEDS: VANCOMYCIN 1.25 GM in SODIUM CHLORIDE 0.9% 250 ML IV SCH (21:21)
--- NOTE | 2019-04-24 21:21 | NUR ---
MEDS SHIFT ASSESSMENT DONE, PLEASE REFER TO CHART. DUE MEDS ADMINISTERED, TOLERATED WELL. KEPT RESTED AND COMFORTABLE IN BED. CALL LIGHT WITHIN REACH. WILL MONITOR PT.
[2019-04-25] VITALS (7 sets, daily range): BP systolic 128–169; BP diastolic 56–81
--- NOTE | 2019-04-25 01:25 | NUR ---
ROUNDS PT RESTING WELL, FAIRLY ASLEEP WITH RESPIRATIONS EVEN AND UNLABORED. NO NOTED DISTRESS. KEPT UNDISTURBED FOR NOW. DUE IV ABX GIVEN. WILL MONITOR PT.
[2019-04-25] MEDS: MEROPENEM 500 MG VIAL IV SCH ×3 (01:26→16:22)
[2019-04-25] MEDS: SODIUM CHLORIDE 0.9% 1000ML 1,000 ML IV SCH ×3 (03:53→10:34)
--- NOTE | 2019-04-25 05:37 | NUR ---
ROUNDS PT RESTING WELL, NO DISTRESS NOTED. NO CONCERNS VERBALIZED. KEPT COMFORTABLE. FOR MORE CARE.
--- NOTE | 2019-04-25 05:43 | NUR ---
PAYMASTER OF PURSES CHANEL, PAYMASTER OF PURSES ENVIRONMENTAL GEOLOGIST FOR HOSPITALIST, MADE AWARE OF PT'S IVF AND HOME MEDS. NEW ORDERS GIVEN, PLEASE REFER TO CPOE.
[2019-04-25] MEDS ORDERED: LEVOTHYROXINE 150 MCG TABLET PO SCH (06:30)
[2019-04-25] MEDS ORDERED: LEVOTHYROXINE 25 MCG TABLET PO SCH (06:30)
[2019-04-25] MEDS ORDERED: LIDOCAINE HCL-MPF 1% 2ML VIAL IV PRN (10:00)
[2019-04-25] MEDS ORDERED: POTASSIUM CHLORIDE 10% ELIXIR 20 MEQ/15 ML UDCUP PO PRN (10:00)
[2019-04-25] MEDS: CARVEDILOL 12.5 MG TABLET PO SCH ×2 (10:39→20:11)
[2019-04-25] MEDS: FAMOTIDINE/PF 20 MG/2 ML VIAL IV SCH ×2 (10:39→20:11)
[2019-04-25] MEDS: CHOLESTYRAMINE PACKET 4 GM PACKET PO SCH (10:39)
[2019-04-25] MEDS: LOSARTAN 100 MG TABLET PO SCH (10:39)
[2019-04-25] MEDS: VANCOMYCIN 1.25 GM in SODIUM CHLORIDE 0.9% 250 ML IV SCH ×2 (10:40→21:59)
[2019-04-25] MEDS: ONDANSETRON HCL 4 MG/2 ML VIAL IV PRN (16:22)
[2019-04-25] MEDS: POTASSIUM CHLORIDE 20 MEQ ERTAB PO PRN (16:22)
--- NOTE | 2019-04-25 19:45 | NUR ---
Notified CHANEL DUEÑAS who is electronics processing supervisor for the hospitalist team regarding patient vomiting. Patient denied of any abdominal pain. No new orders were given. He said he will come see patient personally.
[2019-04-25] MEDS: ASPIRIN 81 MG EC TAB PO SCH (20:11)
--- NOTE | 2019-04-25 21:05 | NUR ---
CHANEL Corral saw patient and assessed her. He said that patient will be NPO from now till am and he said he will order xray in the morning. Will monitor patient closely.
[2019-04-26] VITALS (7 sets, daily range): BP systolic 111–144; BP diastolic 58–70
[2019-04-26] MEDS: MEROPENEM 500 MG VIAL IV SCH ×3 (01:51→17:18)
[2019-04-26] MEDS: SODIUM CHLORIDE 0.9% 1000ML 1,000 ML IV SCH ×2 (01:52→11:38)
--- NOTE | 2019-04-26 03:45 | NUR ---
CHANEL DUEÑAS notified that the patient vomited again. He ordered for Abdominal xray.
[2019-04-26] MEDS: ONDANSETRON HCL 4 MG/2 ML VIAL IV PRN (03:59)
[2019-04-26 05:15] LABS: BASOPHILS % (AUTO) 0.3 % (0.0-5.0); HEMATOCRIT 35.4 % (36-48); MEAN CORPUSCULAR HEMOGLOBIN 30.6 pg (27.0-33.0); MEAN CORPUSCULAR HGB CONC 34.9 g/dL (32.0-36.0); MEAN CORPUSCULAR VOLUME 87.6 fL (79-99); MONOCYTES % (AUTO) 12.4 % (3.0-13.0); NEUTROPHILS % (AUTO) 74.3 % (40.0-77.0); PLATELET COUNT (AUTO) 343 K/uL (130-400); RED BLOOD CELL COUNT(AUTO) 4.04 MIL/uL (4.00-5.50); RED CELL DISTRIBUTION WIDTH 13.3 % (11.0-15.5); WHITE BLOOD COUNT (AUTO) 8.8 K/uL (4.8-10.8)
[2019-04-26 05:35] LABS: CREATININE 0.7 mg/dL (0.5-1.5); POTASSIUM 3.3 mmol/L (3.5-5.1)
--- NOTE | 2019-04-26 05:45 | NUR ---
Yomi from radiology was notified that there is an order of an abdominal xray. He said that he will be up here soon.
[2019-04-26] MEDS: POTASSIUM CHLORIDE 20MEQ/100ML 100 ML IV PRN ×2 (06:03→11:47)
[2019-04-26] MEDS: LEVOTHYROXINE 100 MCG TABLET PO SCH (06:19)
[2019-04-26] MEDS: CHOLESTYRAMINE PACKET 4 GM PACKET PO SCH (09:00)
[2019-04-26] MEDS: LOSARTAN 100 MG TABLET PO SCH (09:50)
[2019-04-26] MEDS: VANCOMYCIN 1.25 GM in SODIUM CHLORIDE 0.9% 250 ML IV SCH ×2 (09:50→21:00)
[2019-04-26] MEDS: CARVEDILOL 12.5 MG TABLET PO SCH ×2 (09:50→20:23)
[2019-04-26] MEDS: FAMOTIDINE/PF 20 MG/2 ML VIAL IV SCH ×2 (09:50→21:00)
--- NOTE | 2019-04-26 12:30 | NUR ---
cm note referral faxed to [facility] spoke to сергей tillman states will come evaluate pt. updated pt in agreement for referral.
[2019-04-26] MEDS: DEXTROSE 5 % AND 0.9 % NACL 1,000 ML IV SCH ×2 (13:00→23:00)
--- NOTE | 2019-04-26 14:26 | NUR ---
RD SCREEN - LOS X 5 Pt admitted for Partial SBO, Hx of hypothyroidism, HTN, Partial Omenectomy. Pt s/p vomiting with Full Liquid diet, pending CT of abdomen results as per EMR. Pt currently downgraded to Clear Liquid diet. Pt tolerating Clear Liquids at this time. Recommend to continue Clear Liquid Diet at this time. Recommend 30mL ProMod TID with meals. Pt LBM 04/24/19. Pt monitored labs: K 3.3, BUN 2, Glu 106, Lipase 972. RD to continue to monitor. Please notify RD as additional nutrition concerns arise. Thank you. Addendum: 04/26/19 at [address] Amended: Links added.
--- NOTE | 2019-04-26 16:00 | NUR ---
cm note per сергей tillman at [facility] has evaluated pt states submitted request for authorization, pending approval.
[2019-04-26] MEDS: METOCLOPRAMIDE 10 MG/2 ML VIAL IVP SCH (17:18)
[2019-04-26] MEDS: ASPIRIN 81 MG EC TAB PO SCH (20:23)
[2019-04-27] MEDS: POTASSIUM CHLORIDE 20 MEQ ERTAB PO PRN ×3 (01:17→19:26)
[2019-04-27] MEDS: MEROPENEM 500 MG VIAL IV SCH ×3 (01:17→17:11)
[2019-04-27] MEDS: DEXTROSE 5 % AND 0.9 % NACL 1,000 ML IV SCH ×2 (01:21→20:23)
[2019-04-27 03:30] VITALS: BP 142/66
[2019-04-27] MEDS: LEVOTHYROXINE 100 MCG TABLET PO SCH (05:48)
[2019-04-27 06:01] LABS: BASOPHILS % (AUTO) 0.6 % (0.0-5.0); HEMATOCRIT 38.1 % (36-48); LYMPHOCYTES % (AUTO) 8.2 % (21.0-51.0); MEAN CORPUSCULAR HEMOGLOBIN 29.7 pg (27.0-33.0); MEAN CORPUSCULAR HGB CONC 33.7 g/dL (32.0-36.0); MEAN CORPUSCULAR VOLUME 88.2 fL (79-99); MONOCYTES % (AUTO) 8.1 % (3.0-13.0); NEUTROPHILS % (AUTO) 83.1 % (40.0-77.0); PLATELET COUNT (AUTO) 392 K/uL (130-400); RED BLOOD CELL COUNT(AUTO) 4.32 MIL/uL (4.00-5.50); RED CELL DISTRIBUTION WIDTH 13.6 % (11.0-15.5); WHITE BLOOD COUNT (AUTO) 13.2 K/uL (4.8-10.8)
[2019-04-27 06:07] LABS: CREATININE 0.9 mg/dL (0.5-1.5); POTASSIUM 3.5 mmol/L (3.5-5.1)
[2019-04-27] MEDS: METOCLOPRAMIDE 10 MG/2 ML VIAL IVP SCH ×3 (06:21→17:11)
[2019-04-27 08:04] VITALS: BP 154/69
--- NOTE | 2019-04-27 08:25 | NUR ---
Pt was sitting up to the bedside chair, oriented to x 3, was moved to room 412 for assignment purposes.
[2019-04-27] MEDS: CHOLESTYRAMINE PACKET 4 GM PACKET PO SCH (09:00)
[2019-04-27] MEDS: LOSARTAN 100 MG TABLET PO SCH (09:28)
[2019-04-27] MEDS: FAMOTIDINE/PF 20 MG/2 ML VIAL IV SCH ×2 (09:29→20:24)
[2019-04-27] MEDS: CARVEDILOL 12.5 MG TABLET PO SCH ×2 (09:29→20:24)
--- NOTE | 2019-04-27 10:51 | NUR ---
Per patient, was instructed not to take by Dr. Jones.
[2019-04-27 11:08] VITALS: BP 156/71
--- NOTE | 2019-04-27 12:47 | NUR ---
Sent Vanco trough level of 18.4 to pharmacy. Per Emery, hold off on administering the Vanco until he places order. Vanco help until further notice.
[2019-04-27] MEDS: VANCOMYCIN 1.25 GM in SODIUM CHLORIDE 0.9% 250 ML IV SCH ×2 (15:58→20:25)
[2019-04-27 19:59] VITALS: BP 142/75
[2019-04-27] MEDS: ASPIRIN 81 MG EC TAB PO SCH (20:24)
[2019-04-27 23:40] VITALS: BP 144/66
[2019-04-28] MEDS: MEROPENEM 500 MG VIAL IV SCH ×2 (01:42→09:39)
[2019-04-28 03:20] VITALS: BP 143/67
[2019-04-28] MEDS: DEXTROSE 5 % AND 0.9 % NACL 1,000 ML IV SCH ×2 (04:34→16:56)
[2019-04-28 05:19] LABS: HEMATOCRIT 33.8 % (36-48); LYMPHOCYTES % (AUTO) 13.2 % (21.0-51.0); MEAN CORPUSCULAR HEMOGLOBIN 30.4 pg (27.0-33.0); MEAN CORPUSCULAR HGB CONC 34.7 g/dL (32.0-36.0); MEAN CORPUSCULAR VOLUME 87.7 fL (79-99); NEUTROPHILS % (AUTO) 72.8 % (40.0-77.0); PLATELET COUNT (AUTO) 241 K/uL (130-400); RED BLOOD CELL COUNT(AUTO) 3.86 MIL/uL (4.00-5.50); RED CELL DISTRIBUTION WIDTH 13.4 % (11.0-15.5); WHITE BLOOD COUNT (AUTO) 6.9 K/uL (4.8-10.8)
[2019-04-28 05:32] LABS: CREATININE 0.7 mg/dL (0.5-1.5); POTASSIUM 3.4 mmol/L (3.5-5.1)
[2019-04-28] MEDS: LEVOTHYROXINE 100 MCG TABLET PO SCH (05:52)
[2019-04-28] MEDS: POTASSIUM CHLORIDE 20 MEQ ERTAB PO PRN (05:53)
[2019-04-28] MEDS ORDERED: MAGNESIUM 2GM PREMIX 50ML 50 ML IV PRN (06:15)
[2019-04-28] MEDS: METOCLOPRAMIDE 10 MG/2 ML VIAL IVP SCH ×3 (06:49→16:56)
[2019-04-28 07:48] VITALS: BP 130/66
[2019-04-28] MEDS: FAMOTIDINE/PF 20 MG/2 ML VIAL IV SCH (08:47)
[2019-04-28] MEDS: CHOLESTYRAMINE PACKET 4 GM PACKET PO SCH (08:48)
[2019-04-28] MEDS: CARVEDILOL 12.5 MG TABLET PO SCH (08:48)
[2019-04-28] MEDS: LOSARTAN 100 MG TABLET PO SCH (08:48)
[2019-04-28] MEDS: VANCOMYCIN 1.25 GM in SODIUM CHLORIDE 0.9% 250 ML IV SCH (10:58)
[2019-04-28 11:12] VITALS: BP 155/72
[2019-04-28 16:03] VITALS: BP 146/71
[2019-04-28] MEDS ORDERED: METO5 PO (17:11)
[2019-04-28] MEDS ORDERED: SULF1TAB42 PO (17:11)
--- NOTE | 2019-04-28 18:10 | NUR ---
DISCHARGE PATIENT GIVEN DISCHARGE INSTRUCTIONS VIA TEACH BACK. 22G PIV TO LFA DISCONTINUED, TIP INTACT. E-RX SENT TO [facility] ON [address] IN [place] FOR BACTRIM DS AND REGLAN. PATIENT TO MAKE FOLLOW UP APPOINTMENTS WITH DR. BADILLO FOR MONDAY AND DR. BELL IN 3 TO 5 DAYS. ABDOMINAL INCISION OPEN TO AIR. PATIENT STABLE AT THIS TIME. PATIENT WHEELED DOWNSTAIRS TO LOBBY BY TAYLOR RAMOS.
== END 2019-04-28 18:23 | disposition home or self-care (01) | DRG 389 ==
LOC: EDH 15:08 → EDHIP 17:40 → 4CH 21:07 → 4BH 04-27 08:23
PROVIDERS: ADMIT Family Medicine; ATTEND Family Medicine
PROC: 0D9670Z Drainage of Stomach with Drainage Device, Via Natural or Artificial Opening (ICD-10-PCS; principal; 2019-04-21)
DX: K56.600 Partial intestinal obstruction, unspecified as to cause (principal); N39.0 Urinary tract infection, site not specified; E03.9 Hypothyroidism, unspecified; E87.6 Hypokalemia; B96.1 Klebsiella pneumoniae [K. pneumoniae] as the cause of diseases classified elsewhere; B96.4 Proteus (mirabilis) (morganii) as the cause of diseases classified elsewhere; D72.829 Elevated white blood cell count, unspecified; I10 Essential (primary) hypertension; Z88.5 Allergy status to narcotic agent; Z88.0 Allergy status to penicillin; Z88.8 Allergy status to other drugs, medicaments and biological substances; Z88.9 Allergy status to unspecified drugs, medicaments and biological substances; Z83.3 Family history of diabetes mellitus; Z82.5 Family history of asthma and other chronic lower respiratory diseases; Z82.49 Family history of ischemic heart disease and other diseases of the circulatory system; Z80.3 Family history of malignant neoplasm of breast; Z80.0 Family history of malignant neoplasm of digestive organs
CPT/HCPCS: 36415; 74018; 74021; 74176; 80048; 80053; 80202; 81001; 82150; 82550; 83690; 83735; 84484; 85025; 85610; 85730; 87040; 87077; 87088; 87186; 93005; 97039; 99291; G0378; J0360; J2185; J2405; J2765; J3370; J3480; J3490; J7030; J7042

== ENCOUNTER → 2019-05-20 | Outpatient (CLI) | payer OTHER ==
[~2019-05-20] MED LIST changes: +ASPI-555 PO; +CYAN1000I IM; +METO5 PO; +SULF1TAB42 PO; -VITAMIN B12 INJ INJ
== END | disposition home or self-care (01) ==
LOC: RAH 07:22
PROVIDERS: ATTEND Internal Medicine Endocrinology, Diabetes & Metabolism
DX: E04.2 Nontoxic multinodular goiter (principal)
CPT/HCPCS: 76536

== ENCOUNTER → 2019-08-26 | Outpatient (CLI) | payer OTHER ==
[~2019-08-26] MED LIST changes: -OMEP-50 PO; +OMEP20CA12 PO
== END | disposition home or self-care (01) ==
LOC: RAH 11:05
PROVIDERS: ATTEND Internal Medicine Endocrinology, Diabetes & Metabolism
DX: E04.2 Nontoxic multinodular goiter (principal)
CPT/HCPCS: 76536

== ENCOUNTER → 2020-12-08 | Outpatient (CLI) | payer SELFPAY ==
[~2020-12-08] MED LIST changes: -ASPI-555 PO; +ASPI-556 PO
== END | disposition home or self-care (01) ==
LOC: OIH 14:55
PROVIDERS: ATTEND Internal Medicine
DX: Z13.6 Encounter for screening for cardiovascular disorders (principal)
CPT/HCPCS: 75571

== ENCOUNTER 2021-04-02 10:54 | Emergency (ER) | payer MEDICARE, SELFPAY ==
[~2021-04-02] VITALS: Ht 160 cm; Wt 83.9 kg
[2021-04-02 11:31] LABS: CREATININE 0.8 mg/dL (0.5-1.5); POTASSIUM 3.8 mmol/L (3.5-5.1)
[2021-04-02 11:38] LABS: APPEARANCE,URINE Clear (CLEAR); BILIRUBIN,URINE Negative (NEGATIVE); COLOR,URINE Yellow (YELLOW); GLUCOSE, URINE (UA) Negative (NEGATIVE); KETONES,URINE Negative (NEGATIVE); LEUKOCYTE ESTERASE ,URINE Trace (NEGATIVE); NITRATE,URINE Negative (NEGATIVE); OCCULT BLOOD,URINE Negative (NEGATIVE); PH,URINE 5.5 (5.0-8.0); PROTEIN,URINE Negative (NEGATIVE); UROBILINOGEN,URINE 0.2 mg/dL (0.2-1.0)
[2021-04-02 11:42] LABS: ALBUMIN 3.9 g/dL (3.5-5.0); BILIRUBIN,TOTAL 0.6 mg/dL (0.2-1.0)
[2021-04-02 11:45] LABS: BASOPHILS % (AUTO) 0.1 % (0.0-5.0); EOSINOPHILS % (AUTO) 1.5 % (0.0-8.0); HEMATOCRIT 38.7 % (36-48); LYMPHOCYTES % (AUTO) 17.4 % (21.0-51.0); MEAN CORPUSCULAR VOLUME 83.9 fL (79-99); MONOCYTES % (AUTO) 12.4 % (3.0-13.0); NEUTROPHILS % (AUTO) 68.2 % (40.0-77.0); PLATELET COUNT (AUTO) 244 K/uL (130-400); RED BLOOD CELL COUNT(AUTO) 4.61 MIL/uL (4.00-5.50); WHITE BLOOD COUNT (AUTO) 7.8 K/uL (4.8-10.8)
[2021-04-02 12:05] LABS: BACTERIA,URINE Few /HPF (None Seen); RBC,URINE None Seen /HPF (0-1); WBC,URINE 0-1 /HPF (0-1)
[2021-04-02] MEDS ORDERED: IOHEXOL-350 75 ML VIAL IV ONE (14:53)
[2021-04-02] MEDS ORDERED: 0.9% NACL 500ML IV.SOLN 500 ML IV ONE ×2 (15:00)
[2021-04-02 17:31] VITALS: BP 166/89
== END 2021-04-02 18:12 | disposition home or self-care (01) ==
LOC: EDH 10:54
DX: R42 Dizziness and giddiness (principal); I10 Essential (primary) hypertension; R51.9 Headache, unspecified; Z79.82 Long term (current) use of aspirin; Z79.899 Other long term (current) drug therapy; Z88.0 Allergy status to penicillin; Z88.1 Allergy status to other antibiotic agents; Z88.5 Allergy status to narcotic agent
CPT/HCPCS: 36415; 70450; 70496; 70498; 71045; 80053; 81001; 82550; 83874; 84484; 85025; 93005; 99285; J7040; Q9967

== ENCOUNTER 2022-08-23 04:42 | Emergency (ER) | payer MEDICARE ==
[~2022-08-23] VITALS: Ht 160 cm; Wt 83.9 kg
[2022-08-23 05:45] LABS: BASOPHILS % (AUTO) 0.2 % (0.0-5.0); HEMATOCRIT 45.8 % (36-48); LYMPHOCYTES % (AUTO) 2.2 % (21.0-51.0); MEAN CORPUSCULAR HEMOGLOBIN 28.4 pg (27.0-33.0); MEAN CORPUSCULAR HGB CONC 33.2 g/dL (32.0-36.0); MEAN CORPUSCULAR VOLUME 85.6 fL (79-99); MONOCYTES % (AUTO) 5.9 % (3.0-13.0); NEUTROPHILS % (AUTO) 91.3 % (40.0-77.0); PLATELET COUNT (AUTO) 269 K/uL (130-400); RED BLOOD CELL COUNT(AUTO) 5.35 MIL/uL (4.00-5.50); RED CELL DISTRIBUTION WIDTH 13.2 % (11.0-15.5); WHITE BLOOD COUNT (AUTO) 24.1 K/uL (4.8-10.8)
[2022-08-23] MEDS ORDERED: 0.9% NACL 500ML IV.SOLN 500 ML IV ONE (06:00)
[2022-08-23] MEDS ORDERED: ONDANSETRON 4MG INJ IVP ONE (06:00)
[2022-08-23 06:36] LABS: ALBUMIN 3.5 g/dL (3.5-5.0); CREATININE 0.8 mg/dL (0.5-1.5); POTASSIUM 3.2 mmol/L (3.5-5.1); TOTAL PROTEIN, SERUM 6.9 g/dL (6.0-8.3)
[2022-08-23 07:03] LABS: APPEARANCE,URINE CLOUDY (CLEAR); BILIRUBIN,URINE NEGATIVE (NEGATIVE); COLOR,URINE YELLOW (YELLOW); GLUCOSE, URINE (UA) NEGATIVE (NEGATIVE); KETONES,URINE 10 mg/dL (NEGATIVE); LEUKOCYTE ESTERASE ,URINE 75 Leu/uL (NEGATIVE); NITRATE,URINE NEGATIVE (NEGATIVE); OCCULT BLOOD,URINE NEGATIVE (NEGATIVE); PH,URINE 5.5 (5.0-8.0); PROTEIN,URINE 50 mg/dL (NEGATIVE); UROBILINOGEN,URINE 0.2 mg/dL (0.2-1.0)
[2022-08-23 07:09] LABS: MUCUS,URINE FEW LPF (None Seen); OTHER CASTS, URINE 6 /LPF (None Seen); SQUAMOUS EPITHELIAL CELL,UR FEW /HPF (0-2)
[2022-08-23] MEDS ORDERED: POTASSIUM CHLORIDE 20MEQ/10ML 10 MEQ in 0.9%NACL 50ML 50 ML IV SCH (08:00)
[2022-08-23] MEDS ORDERED: 0.9%NACL 1000ML 2,000 ML IV SCH (08:00)
[2022-08-23] MEDS ORDERED: IOHEXOL 350 MG/ML 100ML INFUS..BTL IV ONE (08:29)
[2022-08-23] MEDS ORDERED: POTASSIUM CHLORIDE 10MEQ/100ML 100 ML IV SCH (08:30)
[2022-08-23] MEDS ORDERED: ONDA-104 PO (09:11)
[2022-08-23 11:04] VITALS: BP 123/39
== END 2022-08-23 10:45 | disposition home or self-care (01) ==
LOC: EDH 04:42
DX: K52.9 Noninfective gastroenteritis and colitis, unspecified (principal); E78.00 Pure hypercholesterolemia, unspecified; I10 Essential (primary) hypertension; E03.9 Hypothyroidism, unspecified; K21.9 Gastro-esophageal reflux disease without esophagitis; Z79.82 Long term (current) use of aspirin; Z88.0 Allergy status to penicillin; Z88.1 Allergy status to other antibiotic agents; Z88.5 Allergy status to narcotic agent; Z90.49 Acquired absence of other specified parts of digestive tract
CPT/HCPCS: 99285; 74177; 96365; 96366; 96361; 96375; 84484; 80053; 83690; 85025; 87088; 83605 ×2; 81001; 36415; 93005; J7040; J7030; J2405; Q9967

== ENCOUNTER → 2022-10-19 | Outpatient (CLI) | payer MEDICARE ==
[~2022-10-19] MED LIST changes: +ONDA-104 PO
== END | disposition home or self-care (01) ==
LOC: SHCH 07:43
PROVIDERS: ATTEND Internal Medicine Cardiovascular Disease
DX: R01.1 Cardiac murmur, unspecified (principal)
CPT/HCPCS: 93306

== ENCOUNTER → 2023-12-19 | Outpatient (CLI) | payer MEDICARE ==
[~2023-12-19] MED LIST changes: -LOSA100T58 PO; +LOSA100T59 PO
== END | disposition home or self-care (01) ==
LOC: LAB 12:57
PROVIDERS: ATTEND Internal Medicine Cardiovascular Disease
DX: I10 Essential (primary) hypertension (principal)
CPT/HCPCS: 36415; 83880

== ENCOUNTER → 2023-12-25 | Outpatient (CLI) | payer OTHER | END | disposition home or self-care (01) | LOC: RAH 12:44 | PROVIDERS: ATTEND Internal Medicine Cardiovascular Disease | DX: Z13.6 Encounter for screening for cardiovascular disorders (principal) | CPT/HCPCS: 75571 ==

== ENCOUNTER → 2024-01-05 | Outpatient (CLI) | payer MEDICARE ==
[~2024-01-05] MED LIST changes: +IOHEXOL 350 MG/ML 100ML INFUS..BTL IV ONE
== END | disposition home or self-care (01) ==
LOC: RAH 07:50
PROVIDERS: ATTEND Family Medicine
DX: I51.7 Cardiomegaly (principal); R06.02 Shortness of breath; R09.02 Hypoxemia; M47.814 Spondylosis without myelopathy or radiculopathy, thoracic region
CPT/HCPCS: 71275; Q9967

== ENCOUNTER → 2024-02-12 | Outpatient (CLI) | payer MEDICARE ==
[~2024-02-12] MED LIST changes: -IOHEXOL 350 MG/ML 100ML INFUS..BTL IV ONE
[2024-02-12] MEDS: REGADENOSON 0.4 MG/5 ML PF SYG IVP ONE (13:08)
== END | disposition home or self-care (01) ==
LOC: SHCH 07:59
PROVIDERS: ATTEND Internal Medicine Cardiovascular Disease
DX: I25.10 Atherosclerotic heart disease of native coronary artery without angina pectoris (principal); R06.00 Dyspnea, unspecified
CPT/HCPCS: 78452; 93017; J2785; A9500 ×2

== ENCOUNTER 2024-12-05 06:20 | Day surgery (SDC) | payer MEDICARE ==
[~2024-12-05] VITALS: Ht 154.9 cm; Wt 86.2 kg
[2024-12-05] VITALS (10 sets, daily range): BP systolic 90–150; BP diastolic 48–62; PULSE 59–70; RESP 12–18; TEMP 96.8–97.9
[~2024-12-05 06:20] MED LIST changes: -CARV12.511 PO; +CARV25TA PO; -CHOL5POW MC; -CYAN1000I IM; +ERGO500093 PO; -LEVO200T5 PO; -LOSA100T59 PO; -METO5 PO; -ONDA-104 PO; +ROSU10TA72 PO; +SPIR25TA6 PO; -SULF1TAB42 PO
[2024-12-05] MEDS ORDERED: LOSA1TAB42 PO (08:20)
[2024-12-05] MEDS ORDERED: VITAMIN B12 INJ INJ (08:21)
[2024-12-05] MEDS: 0.9%NACL 1000ML 1,000 ML IV ONE (08:24)
[2024-12-05] MEDS ORDERED: proPOFol 10 MG/ML 20ML VIAL IV ONE (09:21)
--- NOTE | 2024-12-05 10:05 | NUR ---
post recovery received pt in room 3. pt in no distress sitting upright in stretcher. iv infusing well. pt oriented to room and call light with in reach.
--- NOTE | 2024-12-05 10:25 | NUR ---
d/c pt and friend ammon cotton given d/c instructions. understanding voiced. pt taken out via w/c by garrick osorio. pt in no distress
== END 2024-12-05 10:25 | disposition home or self-care (01) ==
LOC: DAH 06:20
PROVIDERS: ATTEND Internal Medicine Gastroenterology
DX: R11.2 Nausea with vomiting, unspecified (principal); K29.70 Gastritis, unspecified, without bleeding; K31.9 Disease of stomach and duodenum, unspecified; I10 Essential (primary) hypertension; E11.9 Type 2 diabetes mellitus without complications; F41.9 Anxiety disorder, unspecified; F32.A Depression, unspecified; E03.9 Hypothyroidism, unspecified; M81.0 Age-related osteoporosis without current pathological fracture; Z79.899 Other long term (current) drug therapy; Z79.82 Long term (current) use of aspirin; Z86.2 Personal history of diseases of the blood and blood-forming organs and certain disorders involving the immune mechanism; Z98.41 Cataract extraction status, right eye; Z98.890 Other specified postprocedural states; Z90.710 Acquired absence of both cervix and uterus; Z88.8 Allergy status to other drugs, medicaments and biological substances; Z88.0 Allergy status to penicillin
CPT/HCPCS: 43239; J7030; J2704; A4620; A4215 ×2; A4223; A4222; A4221; A4663; A4606; J3490

== ENCOUNTER → 2025-01-17 | Outpatient (CLI) | payer MEDICARE ==
[~2025-01-17] MED LIST changes: +IOHEXOL-350 75 ML VIAL IV ONE; +LOSA1TAB42 PO; +VITAMIN B12 INJ INJ
--- NOTE | 2025-01-18 03:53 | HMCIMG ---
EXAM: CT chest with contrast. 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 TECHNIQUE: Thin collimated axial CT images of the chest were obtained with sagittal and coronal reformatted images also submitted. CT scan done according to ALARA (As Low as Reasonably Achievable). Intravenous contrast was administered. COMPARISON: CT chest angiography dated 01/05/24. FINDINGS: Mildly hyperinflated bilateral lung souza with mild centriacinar emphysema and mild mosaic attenuation. 10 mm ground-glass nodule in the right upper lobe (series 3, image 7). 2 mm subpleural right lower lobe nodule (image 34). Thin atelectatic bands in the right middle lobe. No acute infiltrates. No pleural effusions. No pericardial effusion. The cardiac chambers and intrathoracic vessels are well opacified. The heart size is within normal limits. Mild calcific atheromatous plaques in the coronary arteries and intrathoracic aorta. Moderate calcification of the mitral annulus. There is dilatation of the pulmonary trunk and bilateral plain pulmonary arteries measuring 3.1 cm and 3 cm respectively. No significant axillary, supraclavicular, or mediastinal lymphadenopathy. No focal thyroid abnormality. Limited views of the upper abdomen demonstrate cholelithiasis. No acute or suspicious osseous abnormality. Mild degenerative osseous changes. IMPRESSION: 1. 10 mm ground-glass nodule in the right upper lobe and a 2 mm subpleural right lower lobe nodule. 2. Dilated pulmonary trunk and bilateral main pulmonary arteries, likely representing pulmonary hypertension. 3. Mild centriacinar emphysema with hyperinflated lung souza and mosaic attenuation. 4. Incidental cholelithiasis. No gross interval changes. Continue annual screening with low-dose CT chest. /[place]
== END | disposition home or self-care (01) ==
LOC: RAH 13:18
PROVIDERS: ATTEND Family Medicine
DX: D49.1 Neoplasm of unspecified behavior of respiratory system (principal); J43.2 Centrilobular emphysema; J98.11 Atelectasis; R91.8 Other nonspecific abnormal finding of lung field; J98.4 Other disorders of lung; I25.10 Atherosclerotic heart disease of native coronary artery without angina pectoris; I70.0 Atherosclerosis of aorta; I34.81 Nonrheumatic mitral (valve) annulus calcification; I28.8 Other diseases of pulmonary vessels; K80.20 Calculus of gallbladder without cholecystitis without obstruction; M47.814 Spondylosis without myelopathy or radiculopathy, thoracic region
CPT/HCPCS: 71260; Q9967